=== PATIENT | female | born 2000 | race Two or more races ===

== ENCOUNTER 2024-07-25 23:15 | Emergency (ER) | payer MEDICAID, SELFPAY ==
[2024-07-25 23:17] VITALS: BMI 88.0
[2024-07-25 23:28] VITALS: BP 143/95; PULSE 79; RESP 20; TEMP 36.9; O2SAT 97
--- NOTE | 2024-07-25 23:29 | EDNOTE_ITS ---
ED Chest Pain RME/HPI General Chief Complaint: Chest Pain Stated Complaint: CHEST PAIN Arrival date/time: 07/25/24 23:15 RME / HPI RME / HPI narrative: This section includes all my notes and documentations, including HPI, PE, and ED course. Augusto Rowell MD HPI: 24 y/o female with Hx of Asthma and Marijuana use presents with chest pain x approximately 6 hours. Reports pain with deep respiration and palpation, around her right breast. Denies cough, fever, and runny nose. No other complaints. ROS: All negative except as documented in HPI. Physical Exam: General: Alert and oriented. No acute distress when remaining still. Eyes: Conjunctivae and lids clear. ENT: No nasal congestion. Neck: Supple. Heart: RRR. Lungs: No respiratory distress. Good air movement. No rhonchi, wheezing, rales. Chest: Palpation of the right sided anterior chest reproduces her pain. Abdomen: Soft and nontender. Skin: Warm and dry. Neuro: Alert and oriented X 3. I reviewed all diagnostic test results: My interpretation of the EKG is: Sinus rhythm (79 bpm) with nonspecific ST-T changes. My interpretation of the chest x-ray is: NAD, official radiology report is pending. Blood tests unremarkable. At this point, diagnoses include: Chest wall pain. Recommended supportive care. Based on my best medical judgment, made decision no further evaluation or treatment indicated at this time. Patient understands and agrees to the discharge instructions customized and printed, see below. Discharge instructions from Dr. Rowell: 1. After extensive evaluation, there is no life-threatening condition.? Such as heart attack or pulmonary embolism (blood clots in your lungs) or pneumothorax (collapsed lung). 2. Your pain is originating from the chest wall and not from an internal organ.? The chest wall has many joints and muscles between the ribs, so sprains and strains are common.?? 3. Apply ice or heat if helpful.? Tylenol/ibuprofen as needed. 4. See a private doctor on 07/28/2024. To make sure there is no serious underlying heart condition, ask to help you get more tests for your heart that cannot be done here in the ER.? Such as Holter Monitor (cardiac monitoring at home from a day to even a month), heart stress test (on treadmill or with medication), echocardiogram (imaging of your heart structures), heart catherization (checking for blockages in your heart arteries), and a referral to see a Mailing Clerk.? 5. Seek immediate medical care with worsening or with any concerns.?? Augusto Rowell MD Related Data Previous Rx's ?Medication ?Instructions ?Recorded ibuprofen 800 mg tablet 800 mg PO TID PRN pain #30 t abs 10/30/18 Allergies Allergy/AdvReac Type Severity Reaction Status Date / Time No Known Allergies Allergy Verified 07/25/24 23:21 Review of Systems Review of Systems Systems Reviewed: All systems reviewed, normal except as documented Past Medical History Past Medical History RESPIRATORY: Positive Asthma Surgical History SURGICAL: Positive Abdominal Surgery Social History SUBSTANCE USE: marijuana ED Exam Narrative Physical exam: Refer to HPI Course Course Course Narrative: CXR is ordered for determining the etiology of shortness of breath. Quality Measures none Orders Category Date Time Status EKG (ED ONLY) *Do not use* NOW Care 07/25/24 23:30 Completed EKG (ED Only) Stat Exams 07/25/24 23:30 Ordered XR chest 1V portable Stat Exams 07/25/24 23:30 Taken BMP [Basic Metabolic Panel] Stat Lab 07/25/24 23:28 Completed CBC Stat Lab 07/25/24 23:28 Completed Magnesium Stat Lab 07/25/24 23:28 Completed Troponin I Stat Lab 07/25/24 23:28 Completed Vital Signs Vital signs: Vital Signs Temperature 98.5 F 07/25/24 23:28 Pulse Rate 79 07/25/24 23:28 Respiratory Rate 20 07/25/24 23:28 Blood Pressure 143/95 H 07/25/24 23:28 Pulse Oximetry (%) 97 07/25/24 23:28 Oxygen Delivery Method Room Air 07/25/24 23:28 Chest Pain MDM Narrative MDM Narrative:: Scribe Attestation: Indira Oro, am scribing for and in the presence of Dr. Rowell. Provider Notation: Although this document has been carefully reviewed, there may still be some phonetic and other typographical errors.? These errors are purely grammatical due to imperfections in the software program and should not be construed in any way to? compromise the substance of the patient's medical care during this visit. 24 y/o female with Hx of Asthma and Marijuana use presents with centralized chest pain x approximately 6 hours. Reports pain with deep respiration and pain to her left breast. Denies cough, fever, and runny nose. No other complaints. Patient data External records reviewed:: [facility] previous records (Reviewed prior ED records from 09/18/23. Patient was seen for Vaginal bleeding.) Clinical information provided by:: patient Social determinants that could affect healthcare access:: none Patient has the following chronic illnesses:: Asthma How is presenting disease/condition affected by chronic disease/condition?: exacerbated by Evaluation data The following diagnostics were reviewed and interpreted by me:: EKG tracing(s) (My interpretation of the EKG is: Sinus rhythm (79 bpm) with nonspecific ST-T changes. Augusto Rowell MD) Lab and/or radiology exams considered but not ordered:: None Interpretation Summary: I reviewed all diagnostic test results: My interpretation of the EKG is: Sinus rhythm (79 bpm) with nonspecific ST-T changes. My interpretation of the chest x-ray is: NAD, official radiology report is pending. Blood tests unremarkable. Medications / Prescriptions Medications or Prescriptions considered but not ordered:: None Medication administrations:: N/A Consultations Consultation(s) initiated? (list below): No Diagnosis Chest Pain Differential Diagnosis: pneumothorax, stable angina, unstable angina pectoris, atypical chest pain, st elevation myocardial infarction, costochondritis, chest pain and biliary colic Most likely diagnosis given after review of the tests above:: Chest wall pain Admission Indicated Admission indicated?: not indicated Explain why admission is indicated or not indicated:: With no severe condition, there was no indication for admission. Admission Request Was there a request for admission?: No Disposition Plan Disposition Plan: Discharge Discharge Attestation Discharge Attestation: The patient and all family members were given an opportunity to ask questions and understood the discharge instructions. Discharge instructions specifically effects, indications for sooner follow up or return to the emergency department, and the expected course of current diagnosis. Patient condition: Stable Discharge Plan Plan Patient Disposition: HOME (Self Care) Prescriptions/Referrals Prescriptions/Med Rec: No Action ibuprofen 800 mg tablet 800 mg PO TID PRN (Reason: pain) Qty: 30 0RF Referrals: Jelani Donato MD [Primary Care Provider] - In 1 week Problem List Clinical Impression: Chest wall pain Patient/Caregiver Discharge Instructions Discharge Activity: activity as tolerated Education Materials: ED Chest Wall Strain (Child) Additional Instructions: Discharge instructions from Dr. Rowell: 1. After extensive evaluation, there is no life-threatening condition.? Such as heart attack or pulmonary embolism (blood clots in your lungs) or pneumothorax (collapsed lung). 2. Your pain is originating from the chest wall and not from an internal organ.? The chest wall has many joints and muscles between the ribs, so sprains and strains are common.?? 3. Apply ice or heat if helpful.? Tylenol/ibuprofen as needed. 4. See a private doctor on 07/28/2024. To make sure there is no serious underlying heart condition, ask to help you get more tests for your heart that cannot be done here in the ER.? Such as Holter Monitor (cardiac monitoring at home from a day to even a month), heart stress test (on treadmill or with medication), echocardiogram (imaging of your heart structures), heart catherization (checking for blockages in your heart arteries), and a referral to see a Mailing Clerk.? 5. Seek immediate medical care with worsening or with any concerns.?? Print Language: Serbian Stand Alone Forms: Cherri Award Info., Patient Portal Info Letter
--- NOTE | 2024-07-25 23:30 | XR_ITS ---
Examination: PA chest single view TECHNIQUE: Upright PA chest single view Date and time: July 26, 2024 0004 hours INDICATIONS: Shortness of breath chest pain today. FINDINGS: Accentuation basilar bronchovascular markings. Normal heart size Intact osseous structures IMPRESSION: Basilar bronchitis pattern
[2024-07-25 23:47] LABS: Basophils % (Auto) 0 % (0-2.5); Eosinophils # (Auto) 0.3 Thou/mm3 (0.0-0.5); Eosinophils % (Auto) 3 % (0-10); Hematocrit 38.1 % (36.0-46.0); Hemoglobin 13.1 g/dL (12.0-16.0); Immature Granulocytes % (Auto) 0 % (0-0); Immature Granulocytes Auto 0.03 Thou/mm3 (0.00-0.00); Lymphocytes # (Auto) 4.3 Thou/mm3 (1.0-4.8); Lymphocytes % (Auto) 41 % (10-50); Mean Corpuscular HGB Conc 34.4 g/dl (31.0-37.0); Mean Corpuscular Hemoglobin 27.9 pg (25.0-35.0); Mean Corpuscular Volume 81 fL (80-100); Monocytes # (Auto) 0.9 Thou/mm3 (0.0-0.8); Monocytes % (Auto) 9 % (0-12); Neutrophils % (Auto) 47 % (37-80); Nucleated Red Blood Cell % 0 /100 WBC (0); Platelet Count 205 Thou/mm3 (140-440); RDW Standard Deviation 38.1 fL (36.4-46.3); White Blood Count 10.6 Thou/mm3 (3.6-11.0)
[2024-07-26 00:07] LABS: Anion Gap 11 (7-16); BUN/Creatinine Ratio 14 Ratio (12-20); Blood Urea Nitrogen 10 mg/dL (9-23); Calcium 8.6 mg/dL (8.3-10.6); Carbon Dioxide 23.9 mMol/L (20.0-31.0); Chloride 106 mMol/L (98-107); Creatinine (Component) 0.7 mg/dL (0.6-1.3); Estimated Creatinine Clearance 250.3 mL/min (>60); Glucose 96 mg/dL (74-106); Magnesium 1.6 mg/dL (1.6-2.6); Osmolality,Calculated 280 (275-295); Potassium 3.8 mMol/L (3.4-5.1); Sodium 141 mMol/L (136-145); Troponin I < 0.002 ng/mL (0.0-0.045); eGFR > 60 See Note
[2024-07-26 00:35] VITALS: BP 124/81; PULSE 80; RESP 18; TEMP 36.8; O2SAT 98
== END 2024-07-26 00:35 | disposition home or self-care (01) ==
PROVIDERS: Emergency Provider Emergency Medicine; PCP Family Medicine
DX: R07.89 Other chest pain (principal); R06.02 Shortness of breath; R94.31 Abnormal electrocardiogram [ECG] [EKG]
CPT/HCPCS: 36415; 71045; 80048; 83735; 84484; 85025; 93005; 99283

== ENCOUNTER 2024-10-10 23:54 | Emergency (ER) | payer MEDICAID, SELFPAY ==
[2024-10-10 23:55] VITALS: BMI 38.2
[2024-10-11 00:26] VITALS: BP 133/87; PULSE 85; RESP 18; TEMP 37.2; O2SAT 98
--- NOTE | 2024-10-11 00:37 | XR_ITS ---
Examination: Complete OB ultrasound, less than 14 weeks, transabdominal Date and time of exam: October 0606/2024, 0145 hours INDICATIONS: Vaginal bleeding beginning 4 hours ago Technique: Obstetrical ultrasound images less than 14 weeks performed via transabdominal imaging Findings: A normal shaped single intrauterine gestation is present in the uterus. CRL 2.1 cm corresponds to 8 weeks 5 days gestational age Cardiac motion 185 bpm Subchorionic hemorrhage 15 x 26 mm Ultrasonographic survey of visible and placental structures unremarkable. Amniotic fluid volume appears appropriate for this estimated gestational age. Right ovary 2.7 cm arterial flow. Left ovary obscured by bowel gas IMPRESSION: Viable intrauterine gestation 8 weeks 5 days Recommend short-term follow-up pelvic sonography given the subchorionic hemorrhage.
[2024-10-11 01:15] LABS: Basophils # (Auto) 0.0 Thou/mm3 (0.0-0.2); Basophils % (Auto) 0 % (0-2.5); Eosinophils # (Auto) 0.2 Thou/mm3 (0.0-0.5); Eosinophils % (Auto) 2 % (0-10); Hematocrit 39.6 % (36.0-46.0); Hemoglobin 13.2 g/dL (12.0-16.0); Immature Granulocytes Auto 0.04 Thou/mm3 (0.00-0.00); Lymphocytes # (Auto) 3.8 Thou/mm3 (1.0-4.8); Lymphocytes % (Auto) 33 % (10-50); Mean Corpuscular HGB Conc 33.3 g/dl (31.0-37.0); Mean Corpuscular Hemoglobin 27.3 pg (25.0-35.0); Mean Corpuscular Volume 82 fL (80-100); Monocytes # (Auto) 0.5 Thou/mm3 (0.0-0.8); Monocytes % (Auto) 4 % (0-12); Neutrophils # (Auto) 7.1 Thou/mm3 (1.8-7.7); Neutrophils % (Auto) 61 % (37-80); Nucleated Red Blood Cell # 0.00 Thou/mm3 (0.00-0.00); Nucleated Red Blood Cell % 0 /100 WBC (0); Platelet Count 256 Thou/mm3 (140-440); RDW Standard Deviation 39.3 fL (36.4-46.3); Red Blood Count 4.84 Miln/mm3 (4.00-5.20); White Blood Count 11.7 Thou/mm3 (3.6-11.0)
[2024-10-11 01:20] LABS: Collection Type, Urine Voided
[2024-10-11 01:32] LABS: Bacteria,Urine 3+; Bilirubin,Urine Negative (Negative); Blood,Urine 3+ (Negative); Color,Urine Yellow (Lt Yel-Yel); Glucose, Urine Negative (Negative); Ketones,Urine Trace (Negative); Leukocyte Esterase,Urine Positive (Negative); Nitrite,Urine Negative (Negative); PH,Urine 6.0 (5.0-7.0); Protein,Urine 1+ (Neg - Trace); RBC,Urine 42 /hpf (0-3); Specific Gravity,Urine 1.036 (1.001-1.035); Squamous Epithelial Cell,Urine 57 /hpf (0-5); Urobilinogen,Urine 3.0 mg/dL (0.0-1.0); WBC,Urine 149 /hpf (0-5)
[2024-10-11 01:33] LABS: Clarity,Urine Cloudy (Clear/Hazy)
[2024-10-11 02:15] LABS: Alanine Aminotransferase 8 U/L (10-49); Albumin, Serum 4.2 gm/dL (3.5-5.0); Albumin/Globulin Ratio 1.6 (1.2-2.2); Alkaline Phosphatase 52 U/L (46-116); Anion Gap 11 (7-16); Aspartate Amino Transferase 13 U/L (0-34); BUN/Creatinine Ratio 7 Ratio (12-20); Bilirubin,Total 0.3 mg/dL (0.3-1.2); Blood Urea Nitrogen < 5 mg/dL (9-23); Calcium 9.5 mg/dL (8.3-10.6); Calcium (Corrected) 9.5 mg/dL (8.5-10.1); Carbon Dioxide 21.4 mMol/L (20.0-31.0); Chloride 105 mMol/L (98-107); Creatinine (Component) 0.7 mg/dL (0.6-1.3); Estimated Creatinine Clearance 146.0 mL/min (>60); Globulin 2.7 gm/dL (2.3-3.5); Glucose 101 mg/dL (74-106); Osmolality,Calculated 271 (275-295); Potassium 3.6 mMol/L (3.4-5.1); Sodium 137 mMol/L (136-145); Total Protein 6.9 gm/dL (5.7-8.2); eGFR > 60 See Note
[2024-10-11 02:37] LABS: Beta HCG,Quantitative 63125 mIU/mL (<5.0)
--- NOTE | 2024-10-11 02:48 | PRELIM_ITS ---
Obstetric ultrasound (transabdominal) with Doppler. October 11, 2024 at 0145 hours Clinical history: Vaginal bleeding. LMP: 08/05/2024. No relevant prior study is available for comparison at the time of interpretation. . Findings: There is an intrauterine gestation with a single live fetus of mean gestational age 8 weeks and 5 days, crown rump length is 2.1 cm. cardiac activity is present at heart rate of 185 beats per minute. Estimated due date by ultrasound is 05/18/2025. There is a 1.5 x 0.5 x 2.6 cm ill-defined fluid collection in the upper uterine segment adjacent to the gestational sac, suggestive of subchorionic hemorrhage. The uterus measures 8.8 x 5.4 x 7.1 cm. The right ovary measures 2.5 x 2 x 2.7 cm. Right ovary demonstrates color flow and spectral waveforms on Doppler evaluation. The left ovary is not visualized. There is no free fluid in the pelvis. Impression: Intrauterine gestation with a single live fetus of mean gestational age 8 weeks and 5 days. Findings suggestive of subchorionic hemorrhage in the upper uterine segment adjacent to the gestational sac. Report Electronically Signed By: Raoul Farrell 10/11/2024 2:47:40 AM [EST]
--- NOTE | 2024-10-11 03:01 | PD.EDPREG ---
ED OB Contraction Preg RMI/HPI General Chief complaint: Vaginal Bleeding Stated complaint: VAGINAL BLEEDING, 10 WEEKS Time Seen by Provider: 10/11/24 00:10 Arrival date/time: 10/10/24 23:54 This is a case of 24-year-old female with no medical history came in in the emergency room due to vaginal bleeding today patient is 10 weeks 2 para 0 no checkup LMP 08/04/2024 persistence of the symptoms last patient decided to sought consult here in the emergency room Limitations: no limitations Related Data Previous Rx's ?Medication ?Instructions ?Recorded ibuprofen 800 mg tablet 800 mg PO TID PRN pain #30 tabs 10/30/18 cephalexin 500 mg capsule 500 mg PO QID 10 days #40 caps 10/11/24 Allergies Allergy/AdvReac Type Severity Reaction Status Date / Time No Known Allergies Allergy Verified 10/10/24 23:55 Review of Systems Review of Systems Systems Reviewed: All systems reviewed, normal except as documented Constitutional Constitutional: Reports system reviewed and no additional complaints, except as documented, Reports as per HPI, Denies chills and Denies fever(s) Cardiovascular Cardiovascular: Reports system reviewed and no additional complaints, except as documented, Reports as per HPI, Denies chest pain and Denies dyspnea Respiratory Respiratory: Reports system reviewed and no additional complaints, except as documented, Reports as per HPI and Denies dyspnea Gastrointestinal Gastrointestinal: Reports system reviewed and no additional complaints, except as documented, Reports as per HPI, Denies abdominal pain, Denies nausea and Denies vomiting Genitourinary Genitourinary: Reports system reviewed and no additional complaints, except as documented, Reports as per HPI, Reports abnormal vaginal bleeding, Denies dysuria, Denies nocturia and Denies pelvic pain Musculoskeletal Musculoskeletal: Reports system reviewed and no additional complaints, except as documented and Reports as per HPI Neurologic Neurologic: Reports system reviewed and no additional complaints, except as documented and Reports as per HPI Past Medical History Past Medical History CARDIAC: Negative Congestive Heart Failure RESPIRATORY: Positive Asthma; Negative Chronic Obstructive Pulmonary Disease (COPD) GENITOURINARY: Negative Renal Disease ENDOCRINE: Negative Diabetes Mellitus Type 1 or Diabetes Mellitus Type 2 Surgical History SURGICAL: Positive Abdominal Surgery Social History SMOKING STATUS: Never smoker SUBSTANCE USE: marijuana ED Exam General Limitations: Present no limitations General appearance: Present alert, in no apparent distress and other (Patient is awake alert oriented not in distress nontoxic looking well-hydrated well-nourished) Head Head exam: Present atraumatic and normocephalic Eye Eye exam: Present normal appearance, PERRL and EOMI ENT ENT exam: Present normal exam, normal oropharynx and mucous membranes moist Neck Neck exam: Present normal inspection, full ROM and trachea midline; Absent tenderness Chest Chest inspection: Present normal inspection and symmetric chest wall rise; Absent tenderness Respiratory Respiratory exam: Present normal lung sounds bilaterally; Absent respiratory distress, wheezes, stridor, accessory muscle use or prolonged expiratory phase Cardiovascular Cardiovascular exam: Present regular rate, normal rhythm and normal heart sounds; Absent bradycardia, tachycardia, irregular rhythm, systolic murmur or diastolic murmur Abdominal Exam Abdominal exam: Present soft, normal bowel sounds and other (Gravid uterus no CVA tenderness); Absent distention, tenderness, guarding, rebound, rigidity, diminished bowel sounds, hyperactive bowel sounds, hypoactive bowel sounds or organomegaly Extremities Exam Extremities exam: Present normal inspection and full ROM Back Exam Back exam: Present normal inspection and full ROM Neurological Exam Neurological exam: Present alert, oriented X3, CN II-XII intact, normal gait and reflexes normal; Absent motor sensory deficit Psychiatric Psychiatric exam: Present normal affect and normal mood Skin Skin exam: Present warm, dry, intact and normal color Course Quality Measures none Orders Category Date Time Status US OB <= 14 weeks fetus Stat Exams 10/11/24 00:37 Taken ABO/RH Type Stat Lab 10/11/24 00:59 Completed Beta HCG,Quantitative Stat Lab 10/11/24 00:59 Completed CBC Stat Lab 10/11/24 00:59 Completed CMP [Comprehensive Metabolic Panel] Stat Lab 10/11/24 00:59 Completed Urinalysis Stat Lab 10/11/24 01:16 Completed Urine Culture Stat Lab 10/11/24 02:58 Ordered cephALEXin [Keflex] Med 10/11/24 02:58 Discontinued 500 mg PO X1 ONE Vital Signs Vital signs: Vital Signs Temperature 98.9 F 10/11/24 00:26 Pulse Rate 85 10/11/24 00:26 Respiratory Rate 18 10/11/24 00:26 Blood Pressure 133/87 H 10/11/24 00:26 Pulse Oximetry (%) 98 10/11/24 00:26 Oxygen Delivery Method Room Air 10/11/24 00:26 Patient is febrile not tachycardic not tachypneic BP stable not hypoxic oxygen saturation is 98% in room air OB/Uterine Contractions MDM Narrative MDM Narrative:: This is a case of 24-year-old female with no medical history came in in the emergency room due to vaginal bleeding today patient is 10 weeks 2 para 0 no checkup LMP 08/04/2024 persistence of the symptoms last patient decided to sought consult here in the emergency room physical examination patient is awake alert oriented not in distress nontoxic looking well-hydrated well-nourished vital signs stable BP stable not tachycardic not tachypneic not hypoxic oxygen saturation is 98% in room air afebrile abdominal exam is benign nonsurgical no guarding no rebound no rigidity no tenderness gravid uterus the rest of the physical examination neurological exam is normal and unremarkable patient noted to have leukocytosis WBC noted to be 11.6 no anemia kidney and liver function is normal is no electrolyte imbalance patient beta-hCG [id number] patient noted to have urinary tract infection patient have blood and WBC in urine with positive nitrites thus patient was started here in the emergency room with cephalexin for urinary tract infection patient was also prescribed cephalexin for 10 days patient ultrasound showed 8 weeks with subchorionic hemorrhage with heart tones 185 based on my physical examination and history patient symptoms suggestive of threatened in early possibly due to urinary tract infection thus I will treat the UTI with cephalexin I have a long discussion with the patient patient needs to see an OB in 2 days for reevaluation renal to check up on for further evaluation and treatment of subchorionic hemorrhage and threatened if not seen in 2 days return to the emergency room for pelvic ultrasound repeat and beta-hCG worsening symptoms or any emergent concern she is well-informed return in the emergency room immediately or call 911 keep hydrated spatulate Gatorade for hydration is advised and finish the course of antibiotic Patient was discharged with comfortable condition walking with stable gait. Patient verbalized no further complains explained diagnosis and answered patient question. Patient is comfortable with the proposed management plan including the need to follow up with his/her primary care physician and any specialist if applicable Discussed patient for any urgent condition or worsening sx, He/She needed to go to emergency room immediately or call 911. Patient acknowledge the responsibility to follow up as instructed and to monitor her/his symptoms. For any persistence of the symptoms for more than 3-5 days return precaution advised. Discussed the result of the test and was given printed discharge instruction Patient data External records reviewed:: [facility] previous records Clinical information provided by:: patient Social determinants that could affect healthcare access:: none Patient has the following chronic illnesses:: None How is presenting disease/condition affected by chronic disease/condition?: no chronic disease Evaluation data The following diagnostics were reviewed and interpreted by me:: lab results, radiology exam(s) and other (specify) Lab and/or radiology exams considered but not ordered:: Reviewed Interpretation Summary: Reviewed Medications / Prescriptions Medications or Prescriptions considered but not ordered:: Given Medication administrations:: Medication Administration History Discontinued Medications Cephalexin HCl (Cephalexin 250 Mg Capsule) 500 mg PO X1 ONE Stop: 10/11/24 02:59 Given Consultations Consultation(s) initiated? (list below): No Diagnosis OB Contractions Differential Diagnosis: other (Threatened in early urinary tract infection) Most likely diagnosis given after review of the tests above:: Threatened in early with urinary lower tract infection Admission Indicated Admission indicated?: not indicated Explain why admission is indicated or not indicated:: Not indicated Admission Request Was there a request for admission?: No Admission Attestation Admission request attestation: Not indicated Disposition Plan Disposition Plan: Discharge Discharge Attestation Discharge Attestation: The patient and all family members were given an opportunity to ask questions and understood the discharge instructions. Discharge instructions specifically effects, indications for sooner follow up or return to the emergency department, and the expected course of current diagnosis. Patient condition: Stable Discharge Plan Plan Patient Disposition: HOME (Self Care) Patient condition on transfer: Stable Prescriptions/Referrals Prescriptions/Med Rec: New cephalexin 500 mg capsule 500 mg PO QID 10 Days Qty: 40 0RF No Action ibuprofen 800 mg tablet 800 mg PO TID PRN (Reason: pain) Qty: 30 0RF Referrals: Jelani Donato MD [Primary Care Provider] - In 1 week Problem List Clinical Impression: Threatened in early , Urinary tract infection during , Subchorionic hemorrhage Patient/Caregiver Discharge Instructions Education Materials: Urinary Tract Infections in Women, Understanding Miscarriage ..., Bleeding During Early Additional Instructions: Follow-up with your primary care physician in 2 days for reevaluation and to be referred to OB dry cell battery assembler for further evaluation and treatment of checkup and subchorionic hemorrhage threatened in early it is very important to see a OB dry cell battery assembler in 2 days for checkup if not return here in the emergency room in 2 days for reevaluation and for repeat pelvic ultrasound and beta-hCG for any persistent worsening symptoms or any emergent concern return to the emergency room immediately or call 911 finish the course of antibiotic increase water intake keep hydrated spatulate Gatorade for hydration is advised pelvic rest no sex until cleared by your primary care physician is advsied Print Language: Macedonian Stand Alone Forms: Cherri Award Info., Patient Portal Info Letter PA/HEADING UP MACHINE OPERATOR Supervising Physician SHAUNNA/BOB Supervising Physician: Dr. Stevens
[2024-10-11 03:07] VITALS: BP 135/76; PULSE 70; RESP 18; TEMP 36.8; O2SAT 95
== END 2024-10-11 03:08 | disposition home or self-care (01) ==
PROVIDERS: Nurse Practitioner Family; Emergency Provider Emergency Medicine; PCP Family Medicine
DX: O20.0 Threatened abortion (principal); O23.41 Unspecified infection of urinary tract in pregnancy, first trimester; N39.0 Urinary tract infection, site not specified; Z3A.10 10 weeks gestation of pregnancy
CPT/HCPCS: 36415; 76801; 80053; 81001; 84702; 85025; 86900; 86901; 87086; 99283; A9270